=== PATIENT | female | born 1985 | race Two or more races ===

== ENCOUNTER 2024-10-13 14:05 | Emergency (ER) | payer SELFPAY ==
[2024-10-13 14:08] VITALS: BP 138/78; PULSE 77; TEMP 37.1; O2SAT 97; BMI 20.4
--- NOTE | 2024-10-13 14:25 | ED.EYEPROB1 ---
HPI - Eye Problem General Chief complaint: Eye Problems Stated complaint: RT EYE PAIN Time Seen by Provider: 10/13/24 14:11 Source: patient Mode of arrival: walk-in Limitations: no limitations History of Present Illness HPI Narrative: 39-year-old female presents to the emergency department for right eye redness. She has had this for about a week. No symptoms in the left eye. She does not wear glasses. She occasionally uses colored contacts but not for vision and she has not used them recently. She gives no history of foreign body or injury to the eye. Related Data Previous Rx's ?Medication ?Instructions ?Recorded sulfacetamide sodium 10 % eye drops 2 drp ophthalmic (eye) Q4H #15 mL 10/13/24 Allergies Allergy/AdvReac Type Severity Reaction Status Date / Time No Known Drug Allergies Allergy Verified 10/13/24 14:12 Review of Systems ROS Narrative A ten point review of systems is negative except as noted above. PFSH PFSH Social History Little interest or pleasure in doing things: not at all Feeling down, depressed, or hopeless: not at all Exam Narrative Exam Narrative: Nurses note and vital signs reviewed and patient is not hypoxic. General: The patient appears well and in no apparent distress. Patient is resting comfortably on cart. Skin: Warm, dry, no pallor noted. There is no rash noted. Head: Normocephalic, atraumatic Eye: Left conjunctiva is normal, right is injected. There is no subconjunctival hemorrhage. No periorbital swelling or erythema. Extraocular movements are intact and fluorescein staining and Moya lamp examination show no corneal abrasions. No foreign bodies are noted. Ears, Nose, Mouth, and Throat: oral mucosa is moist. Nares patent. Cardiovascular: Regular Rate and Rhythm Respiratory: Patient is in no distress, no accessory muscle use, lungs are clear to auscultation, no wheezing, rales or rhonchi Back: non-tender GI: Soft and nontender Musculoskeletal: The patient has no evidence of calf tenderness, no pitting edema, symmetrical pulses noted bilaterally Neurological: A&O, normal speech Psychiatric: Cooperative Constitutional Vital Signs, click to edit/add: Last Vital Signs Temp 98.8 F 10/13/24 14:08 Pulse 77 10/13/24 14:08 Resp 18 10/13/24 14:08 BP 138/78 10/13/24 14:08 Pulse Ox 97 10/13/24 14:08 O2 Del Method Room Air 10/13/24 14:08 Course Vital Signs Vital signs: Vital Signs Temperature 98.8 F 10/13/24 14:08 Pulse Rate 77 10/13/24 14:08 Respiratory Rate 18 10/13/24 14:08 Blood Pressure 138/78 10/13/24 14:08 Pulse Oximetry 97 10/13/24 14:08 Oxygen Delivery Method Room Air 10/13/24 14:08 Temperature 98.8 F 10/13/24 14:08 Pulse Rate 77 10/13/24 14:08 Respiratory Rate 18 10/13/24 14:08 Blood Pressure 138/78 10/13/24 14:08 Pulse Oximetry 97 10/13/24 14:08 Oxygen Delivery Method Room Air 10/13/24 14:08 MDM - Eye Problem MDM Narrative Medical decision making narrative: No evidence of corneal abrasion or foreign body. I will place her on Bleph-10 and she was referred to ophthalmology for follow-up if there is no improvement. Treatment diagnosis and follow-up were discussed with the patient. Differential Diagnosis Differential diagnosis: Likely corneal abrasion, conjunctivitis and subconjunctival hemorrhage Discharge Plan Discharge Chief Complaint: Eye Problems Clinical Impression: Conjunctivitis Patient Disposition: Home, Self-Care Time of Disposition Decision: 14:24 Condition: Good Mode of Transportation: Private Vehicle Prescriptions / Home Meds: New sulfacetamide sodium 10 % drops 2 drp ophthalmic (eye) Q4H Qty: 15 0RF Print Language: Togolese Instructions: Conjunctivitis (ED) Referrals: CHE BARBOZA [Physician] - 1 week
[2024-10-13] MEDS: FLUORESCEIN SODIUM 1 MG STRIP OP (14:37)
== END 2024-10-13 14:38 | disposition home or self-care (01) ==
PROVIDERS: Emergency Provider Emergency Medicine
DX: H10.9 Unspecified conjunctivitis (principal)
CPT/HCPCS: 99283

== ENCOUNTER 2025-02-24 06:31 | Emergency (ER) | payer SELFPAY ==
[2025-02-24 06:41] VITALS: BP 123/78; PULSE 70; TEMP 36.7; O2SAT 98; BMI 20.4
[2025-02-24] MEDS: FLUORESCEIN SODIUM 1 MG STRIP OP (07:29)
--- NOTE | 2025-02-24 07:34 | ED_ITS ---
HPI HPI - General Adult General Chief complaint: Eye Problems Stated complaint: EYE RIGHT Time Seen by Provider: 02/24/25 06:54 Source: patient Mode of arrival: walk-in Limitations: no limitations History of Present Illness HPI narrative: 39-year-old female presents for right eye discomfort and drainage and redness. She has had it for 6 days. She was using some old leftover eyedrops, pace lfacetamide, but was not getting any improvement. She gives no history of trauma or foreign body and she does not wear glasses or contacts. No symptoms in the left eye. Light makes it worse. Related Data Previous Rx's ?Medication ?Instructions ?Recorded acetaminophen 300 mg-codeine 30 mg 1 tab PO Q6H PRN pa in 5 days #20 02/24/25 tablet tabs ciprofloxacin HCl 0.3 % eye drops 1 drp ophthalmic (ey e) Q4H #5 mL 02/24/25 ketorolac 0.5 % eye drops (Acular) 1 drp ophthalmic (e ye) Q6H PRN 02/24/25 pain #5 mL Allergies Allergy/AdvReac Type Severity Reaction Status Date / Time No Known Drug Allergies Allergy Verified 02/24/25 06:40 Opioid HPI Opioid Management Most Recent Opioid Data: Last Pain Scale 8 Today, 06:46 Review of Systems ROS Narrative A ten point review of systems is negative except as noted above. PFSH PFSH Social History Little interest or pleasure in doing things: not at all Feeling down, depressed, or hopeless: not at all Exam Narrative Exam Narrative: Nurses note and vital signs reviewed and patient is not hypoxic. General: The patient appears well and in no apparent distress. Patient is resting comfortably on cart. Skin: Warm, dry, no pallor noted. There is no rash noted. Head: Normocephalic, atraumatic Eye: Left eye is normal. The right conjunctiva is quite injected. The pupil is round and reactive to light. Anterior chambers clear. Fluorescein stain and Moya lamp examination shows no corneal abrasion. No foreign body noted. Ears, Nose, Mouth, and Throat: oral mucosa is moist. Nares patent. Cardiovascular: Regular Rate and Rhythm Respiratory: Patient is in no distress, no accessory muscle use, lungs are clear to auscultation, no wheezing, rales or rhonchi Back: non-tender GI: Soft and nontender Musculoskeletal: No joint swelling Neurological: A&O, normal speech Psychiatric: Cooperative Constitutional Vital Signs, click to edit/add: Last Vital Signs Temp 98.1 F 02/24/25 06:41 Pulse 70 02/24/25 06:41 Resp 19 02/24/25 06:41 BP 123/78 02/24/25 06:41 Pulse Ox 98 02/24/25 06:41 O2 Del Method Room Air 02/24/25 06:41 Course Vital Signs Vital signs: Vital Signs Temperature 98.1 F 02/24/25 06:41 Pulse Rate 70 02/24/25 06:41 Respiratory Rate 19 02/24/25 06:41 Blood Pressure 123/78 02/24/25 06:41 Pulse Oximetry 98 02/24/25 06:41 Oxygen Delivery Method Room Air 02/24/25 06:41 Temperature 98.1 F 02/24/25 06:41 Pulse Rate 70 02/24/25 06:41 Respiratory Rate 19 02/24/25 06:41 Blood Pressure 123/78 02/24/25 06:41 Pulse Oximetry 98 02/24/25 06:41 Oxygen Delivery Method Room Air 02/24/25 06:41 Medical Decision Making MDM Narrative Medical decision making narrative: My clinical impression is that she has conjunctivitis. She is placed on Cipro eyedrops as well as Acular and Tylenol 3. She was given referral to ophthalmo logy and will call in the morning if there is no improvement. Treatment diagnosis and follow-up were discussed with the patient. Differential Diagnosis Differential Diagnosis: Conjunctivitis, corneal abrasion, foreign body Discharge Plan Discharge Chief Complaint: Eye Problems Clinical Impression: Conjunctivitis Patient Disposition: Home, Self-Care Time of Disposition Decision: 07:29 Condition: Good Mode of Transportation: Private Vehicle Prescriptions / Home Meds: New acetaminophen-codeine 300-30 mg tablet 1 tab PO Q6H PRN (Reason: pain) 5 Days Qty: 20 0RF ketorolac [Acular] 0.5 % drops 1 drp ophthalmic (eye) Q6H PRN (Reason: pain) Qty: 5 0RF ciprofloxacin HCl 0.3 % drops 1 drp ophthalmic (eye) Q4H Qty: 5 0RF Print Language: Romanian Instructions: Conjunctivitis (ED) Referrals: CHE BABROZA [Physician, Opthalmology] - 1 week Physician,Non-Staff, [Primary Care Provider] - 1 week
[2025-02-24] MEDS: ACETAMINOPHEN 300 MG/ 30 MG CODEINE TABLET 1 TAB PO (07:41)
== END 2025-02-24 07:44 | disposition home or self-care (01) ==
PROVIDERS: Emergency Provider Emergency Medicine
DX: H10.011 Acute follicular conjunctivitis, right eye (principal); H57.11 Ocular pain, right eye
CPT/HCPCS: 99283